=== PATIENT | female | born 1950 | race Caucasian/White ===

== ENCOUNTER → 2018-07-15 | Outpatient (CLI) | payer MEDICARE, BC ==
--- NOTE | 2018-07-15 15:41 | CRLCT ---
INDICATION: Right-sided pain TECHNIQUE: CT abdomen and pelvis without contrast. COMPARISON: None FINDINGS: Lower chest: Unremarkable. Liver: Unremarkable. Spleen: Unremarkable. Pancreas: Unremarkable. Gallbladder and bile ducts: Unremarkable. Kidneys: 4 millimeter obstructing calculus distal right ureter with moderate to severe right hydronephrosis and perinephric fat stranding. Probable bilateral parapelvic cysts noted. Adrenal glands: Unremarkable. GI tract: Unremarkable. Appendix is normal. Vascular structures: Unremarkable. Lymph nodes: Unremarkable. Miscellaneous: Small fat containing umbilical hernia. No free air or significant free fluid. Pelvic Organs: Unremarkable. Bones: Unremarkable for age. IMPRESSION: 4 millimeter obstructing calculus distal right ureter with moderate to severe right hydronephrosis and perinephric fat stranding. Bilateral parapelvic renal cysts. Dictated by Zachary Cohen MD @ 07/15/2018 3:40:02 PM Please note that all CT scans at this facility use dose modulation, iterative reconstruction, and/or weight-based dosing when appropriate to reduce radiation dose to as low as reasonably achievable. Dictated by: Zachary Cohen MD @ 07/15/2018 15:40:10 (Electronically Signed)
== END ==
LOC: JP.CT 14:46
PROVIDERS: ATTEND Family Medicine
DX: N23 Unspecified renal colic (principal); N13.2 Hydronephrosis with renal and ureteral calculous obstruction; N28.1 Cyst of kidney, acquired
CPT/HCPCS: 74176